=== PATIENT | male | born 1955 | race Caucasian/White ===

== ENCOUNTER 2017-03-11 11:28 | Emergency (ER) | payer BC, OTHER ==
[2017-03-11 12:12] LABS: #Basophils 0.1 thou/uL (0.0-0.2); #Eosinphils 0.5 thou/uL (0.0-0.7); #Lymphocytes 1.2 thou/uL (1.20-3.40); #Monocytes 0.7 thou/uL (0.11-0.59); #Neutrophils 3.8 thou/uL (1.40-6.50); %Basophils 0.9 % (0.0-1.0); %Lymphocytes 19.1 % (21.0-51.0); %Monocytes 11.3 % (0.0-10.0); Hematocrit 42.7 % (42.0-52.0); Mean Platelet Volume 8.6 fL (7.4-10.4); Red Blood Cell (RBC) Count 4.62 mill/uL (4.70-6.10); White Blood Cell (WBC) Count 6.3 thou/uL (4.8-10.8)
[2017-03-11 12:19] LABS: PTT 34.5 SEC (22.9-36.1)
[2017-03-11 12:33] LABS: ALT (SGPT) 33 U/L (8-55); AST (SGOT) 30 U/L (5-34); Alkaline Phosphatase 111 U/L (40-150); Anion Gap 13 mmol/L (10-20); BUN (Urea Nitrogen) 18 mg/dL (8.4-25.7); Bilirubin, Total 0.4 mg/dL (0.2-1.2); Calc. Creatinine Clearance 0 mL/min (70-130); Calcium 9.4 mg/dL (7.8-10.44); Carbon Dioxide 25 mmol/L (23-31); Chloride 106 mmol/L (98-107); Estimated GFR-MDRD 72; Globulin 3.4 g/dL (2.4-3.5); Protein, Total 7.7 g/dL (5.8-8.1)
[2017-03-11 12:42] LABS: Troponin I Less than 0.010 ng/mL (< 0.028)
[2017-03-11] MEDS ORDERED: Meclizine HCl 25 MG TAB ONE (13:08)
[2017-03-11 13:14] LABS: Bilirubin Small (Negative); Blood, Urine Negative (Negative); Glucose, Urine (Dipstick) Negative (Negative); Ketone, Urine Negative (Negative); Nitrite Negative (Negative); Protein, Urine (Dipstick) Negative (Neg-Trace); Urobilinogen 0.2 mg/dL (0.2-1.0)
--- NOTE | 2017-03-11 13:18 | CT ---
CT OF THE HEAD WITHOUT CONTRAST: Date: 03/11/17 COMPARISON: None. HISTORY: Dizziness. TECHNIQUE: Serial axial CT imaging is obtained at 5 mm intervals from vertex through skull base without contrast . FINDINGS: The imaged paranasal sinuses/mastoid air cells are well aerated. There is no displaced calvarial frac ture. There is no intracranial hemorrhage, midline shift, or mass effect. IMPRESSION: No intracranial hemorrhage. POS: [facility]
== END 2017-03-11 14:16 | disposition home or self-care (01) ==
LOC: ERS 11:28
DX: H81.13 Benign paroxysmal vertigo, bilateral (principal); I10 Essential (primary) hypertension; E78.00 Pure hypercholesterolemia, unspecified
CPT/HCPCS: 36415; 70450; 80053; 81003; 82553; 84484; 85025; 85610; 85730; 93005

== ENCOUNTER 2017-03-25 09:45 | Outpatient (CLI) | payer BC, OTHER ==
--- NOTE | 2017-03-25 15:23 | NM ---
THREE PHASE BONE SCAN: History: 61-year-old male with painful orthopedic hardware right knee, right knee replacement three years ago now with pain. Technique: Patient was injected with 33 mCi Technetium 99M MDP intravenously. FINDINGS: Flow images demonstrate symmetric perfusion bilaterally. No evidence for increased perfusion activity in either knee. Immediate static images demonstrates no increased soft tissue activity. Delayed whole body and mobile spot images demonstrates evidence for right knee arthroplasty. No evide nce for periprostatic areas of abnormal increased activity. There is some very mild increased activit y in both shoulders, sternoclavicular joints, left knee joint and left ankle, evidence for minimal de generative/arthrosis changes. There is bilateral renal and bladder activity. IMPRESSION: Unremarkable bone scan. No evidence for abnormal increased activity in the region of the right knee p rosthesis to suggest loosening, infection, or other active abnormal osteogenesis. POS: [facility]
== END 2017-03-25 09:46 | disposition home or self-care (01) ==
LOC: NM 09:45
PROVIDERS: ATTEND Specialist
DX: T84.84XA Pain due to internal orthopedic prosthetic devices, implants and grafts, initial encounter (principal)
CPT/HCPCS: 78315; A9503

== ENCOUNTER 2023-06-10 14:52 | Outpatient (CLI) | payer MEDICARE ==
[2023-06-10 16:51] LABS: #Basophils 0.1 10x3/uL (0.0-0.2); #Eosinphils 0.2 10x3/uL (0.0-0.5); #Monocytes 1.2 10x3/uL (0.0-1.1); #Neutrophils 7.3 10x3/uL (1.5-8.4); %Basophils 0.5 % (0.0-2.0); %Eosinophils 2.1 % (0.0-6.0); %Lymphocytes 19.4 % (18.0-47.0); %Monocytes 10.5 % (0.0-10.0); %Neutrophils 66.9 % (40.0-75.0); Hematocrit 44.2 % (38.8-50.0); Hemoglobin 14.8 g/dL (13.5-17.5); Mean Corpuscular HGB CONC 33.5 g/dL (32.0-36.0); Mean Corpuscular Hemoglobin 30.6 pg (27.0-33.0); Mean Corpuscular Volume 91.3 fl (81.2-95.1); Mean Platelet Volume 11.6 fl (7.4-10.4); Platelet Count 192 10x3/uL (150-450); RBC Distribution Width 12.9 % (11.5-14.5); Red Blood Cell (RBC) Count 4.84 10x6/uL (4.32-5.72); White Blood Cell (WBC) Count 10.9 10x3/uL (3.5-10.5)
[2023-06-10 17:00] LABS: ALT (SGPT) 34 U/L (8-55); AST (SGOT) 21 U/L (5-34); Albumin 4.5 g/dL (3.4-4.8); Alkaline Phosphatase 83 U/L (40-110); Anion Gap 13 mmol/L (10-20); BUN (Urea Nitrogen) 32 mg/dL (8.4-25.7); Bilirubin, Total 0.7 mg/dL (0.2-1.2); Calc. Creatinine Clearance 0 mL/min (70-130); Calcium 9.2 mg/dL (7.8-10.44); Carbon Dioxide 28 mmol/L (23-31); Chloride 104 mmol/L (98-107); Estimated GFR 69; Globulin 2.7 g/dL (2.4-3.5); Glucose 102 mg/dL (80-115); Potassium 4.7 mmol/L (3.5-5.1); Protein, Total 7.2 g/dL (5.8-8.1); Sodium 140 mmol/L (136-145)
== END 2023-06-10 14:53 | disposition home or self-care (01) ==
LOC: LABBT 14:52
PROVIDERS: ATTEND Surgery
DX: Z01.818 Encounter for other preprocedural examination (principal); K42.9 Umbilical hernia without obstruction or gangrene
CPT/HCPCS: 80053; 85025; 93005; 93010

== ENCOUNTER 2023-06-18 08:58 | Day surgery (SDC) | payer MEDICARE, OTHER ==
[2023-06-10 15:37] VITALS: BMI 32.3
[2023-06-18] MEDS ORDERED: EPINEPHrine 1 MG/ML VIAL ONE (11:25)
[2023-06-18] MEDS ORDERED: Bupivacaine PF 0.5% 30 ML VIAL ONE (11:26)
[2023-06-18] MEDS ORDERED: fentaNYL PF 100 MCG/2 ML SYRINGE ONE (11:27)
[2023-06-18] MEDS ORDERED: PROPOFOL 40 ML ONE (11:28)
[2023-06-18] MEDS ORDERED: Sodium Chloride 0.9% 100 ML ONE (11:42)
[2023-06-18] MEDS ORDERED: CEFAZOLIN 2 GM VIAL ONE (11:42)
[2023-06-18] MEDS ORDERED: Midazolam HCl 2 mg/2 ml Vial ONE (11:47)
[2023-06-18] MEDS ORDERED: Ondansetron PF 4 MG/2 ML Vial ONE (12:14)
[2023-06-18] MEDS ORDERED: Dexamethasone 4 mg/ml Vial ONE (12:14)
[2023-06-18] MEDS ORDERED: Glycopyrrolate 0.2 MG/ML 5 ML SYRINGE ONE (12:16)
== END 2023-06-18 15:00 | disposition home or self-care (01) ==
LOC: SDC 08:58
PROVIDERS: ATTEND Surgery
PROC: 0WUF0JZ Supplement Abdominal Wall with Synthetic Substitute, Open Approach (ICD-10-PCS; principal; 2023-06-18)
DX: K42.9 Umbilical hernia without obstruction or gangrene (principal); J45.909 Unspecified asthma, uncomplicated; K21.9 Gastro-esophageal reflux disease without esophagitis; Z79.899 Other long term (current) drug therapy
CPT/HCPCS: 49591; A6258; J0171; C1889; J0665; J1100; J2250; J2405; J2704; J3490